=== PATIENT | female | born 1940 | race Caucasian/White ===

== ENCOUNTER → 2016-08-09 | Outpatient (CLI) | payer MEDICARE, BC ==
[~2016-08-09] MED LIST: ADVIL200 M3 PO; ATORVASTATIN CA10 MG PO; EQL FISH OIL 11 EAC1 PO; FISH OIL 1,2001 EAC2 PO; NEURONTIN300 MG PO; OS-CAL 500+D31 EACH PO; PENTOXIFYLINE100 GM PO; VITAMIN B-122000 MCG PO; VITAMIN C500 MG PO; VITAMIN D1000 UNIT PO; ZINC50 M1 PO
--- NOTE | ~2016-08-09 | MY11 ---
[facility] A Service of [facility] & [facility] RADIOLOGY TEXT RESULTS PATIENT: NIYA VELASCO LOCATION: [facility] : 44 UNIT #: [id number] AGE: [address]: Giovanny Simons MD SEX: F ORDER DR: [id number] [place], [place] [address] [id number] O MR#: [id number] Acc #: [id number] NAME: NIYA VELASCO : 1940 SEX: F STUDY DATE/TIME: 08/09/2016 12:08 UNIT: [facility] ROOM: STUDY DESCRIPTION: MY Mammogram Screening Dig Moris Attending Physician: Giovanny Simons M.D. Referring Physician: Giovanny Simons M.D. Ordering Physician: Giovanny Simons M.D. Primary Care Physician: Giovanny Simons M.D. MEDICAL IMAGING REPORT This report is preliminary unless electronic signature is present EXAM Digital screening mammogram with CAD 08/09/2016 INDICATIONS Routine screening. PROCEDURE Bilateral CC and MLO views obtained on a digital mammography unit. FDA-approved CAD device utilized. COMPARISON 07/07/2015 and 10/16/2011 FINDINGS Scattered fibroglandular density. No dominant mass or suspicious calcification. 6-7 mm mass in the subareolar left breast is stable dating back to at least 2011. IMPRESSION Benign screening mammogram, screen interval in 1 year suggested. BIRADS II Patients over the age of 40 are entered into a reminder system with target due date for the next mammogram. A result letter will also be sent to the patient. BIRADS: 2 - Benign finding Dictated by... Antione Henriquez M.D. THIS IS AN ELECTRONICALLY VERIFIED REPORT Antione Henriquez M.D. at 08/10/2016 2:11 PM BRIAN/stephanie [facility] A Service of [facility] & [facility] RADIOLOGY TEXT RESULTS PATIENT: NIYA VELASCO LOCATION: [facility] : 44 UNIT #: [id number] AGE: [address]: Giovanny Simons MD SEX: F ORDER DR: TD: 08/09/2016 17:34 JOB #: [id number] MEDICAL IMAGING REPORT COPY
== END | disposition home or self-care (01) ==
LOC: CWCC 11:46
DX: Z12.31 Encounter for screening mammogram for malignant neoplasm of breast (principal)
CPT/HCPCS: G0202

== ENCOUNTER 2017-01-06 12:13 | Emergency (ER) | payer MEDICARE, BC ==
[~2017-01-06] VITALS: Ht 160 cm; Wt 46.7 kg
--- NOTE | ~2017-01-06 | CT4 ---
[facility] A Service [facility] RADIOLOGY TEXT RESULTS PATIENT: NIYA VELASCO LOCATION: SED : 44 UNIT #: [id number] AGE: [address]: Becky Daugherty MD SEX: F ORDER DR: [id number] E MR#: [id number] Acc #: [id number] NAME: NIYA VELASCO : 1940 SEX: F STUDY DATE/TIME: 01/06/2017 13:03 UNIT: SED ROOM: STUDY DESCRIPTION: CT Abd and Pelv Wo Cont Attending Physician: Becky Daugherty M.D. Ordering Physician: Becky Daugherty M.D. Primary Care Physician: Giovanny Simons M.D. MEDICAL IMAGING REPORT This report is preliminary unless electronic signature is present. EXAM CT abdomen and pelvis without contrast HISTORY Generalized abdomen pain, nausea and vomiting for [address] abdomen and pelvis was performed without contrast. This CT exam was performed with one or more of the following radiation dose reduction techniques: automatic exposure control, adjustment of mA and/or kV according to patient size, and iterative reconstruction. CT ABDOMEN: The liver, spleen, pancreas, kidneys, and adrenal glands are normal. Cholecystectomy. No urinary calculi or obstruction. No bowel dilatation. No ascites. No inflammatory stranding. Normal caliber abdominal aorta. CT PELVIS: Hysterectomy. No free fluid. No inflammatory changes. No bowel obstruction. The urinary bladder is normal. IMPRESSION 1. No acute findings in the abdomen or pelvis. 2. Cholecystectomy and hysterectomy. Dictated by... Edvin Collins M.D. THIS IS AN ELECTRONICALLY VERIFIED REPORT [facility] A Service of [facility] RADIOLOGY TEXT RESULTS PATIENT: NIYA VELASCO LOCATION: SED : 44 UNIT #: [id number] AGE: [address]: Becky Daugherty MD SEX: F ORDER DR: Edvin Collins M.D. at 01/07/2017 11:14 PM RICH/mariano TD: 01/07/2017 05:02 JOB #: [id number] MEDICAL IMAGING REPORT Page 1 of 1
--- NOTE | ~2017-01-06 | CT57 ---
[facility]. [facility] A Service of [facility] RADIOLOGY TEXT RESULTS PATIENT: NIYA VELASCO LOCATION: SED : 44 UNIT #: [id number] AGE: [address]: Becky Daugherty MD SEX: F ORDER DR: [id number] [address] [address] [id number] E MR#: [id number] Acc #: [id number] NAME: NIYA VELASCO : 1940 SEX: F STUDY DATE/TIME: 01/06/2017 13:10 UNIT: SED ROOM: STUDY DESCRIPTION: CT Chest Wo Cont Attending Physician: Becky Daugherty M.D. Ordering Physician: Becky Daugherty M.D. Primary Care Physician: Giovanny Simons M.D. MEDICAL IMAGING REPORT This report is preliminary unless electronic signature is present. EXAM CT chest without contrast HISTORY Shortness of air and fever for 2 days. Prior sinus carcinoma, and radiation therapy. FINDINGS CT chest was performed without contrast. This CT exam was performed with one or more of the following radiation dose reduction techniques: automatic exposure control, adjustment of mA and/or kV according to patient size, and iterative reconstruction. Spinal fusion from T2 to T6, with laminectomy at T4, and stable defect in the posterior midline of the T4 vertebral body. Bilateral superior paramediastinal atelectasis, characteristic of postradiation changes. There are extensive bilateral pulmonary nodules, throughout the lungs bilaterally, the largest of which are primarily in the mid and inferior lower lobes, measuring up to 2.6 cm in the lateral right lower lobe and 2.5 cm in the posterolateral left lower lobe. These have increased in size and number as compared to the prior CT. Several of these nodules contain fairly subtle, amorphous central calcifications. There is also moderate mediastinal and bilateral hilar adenopathy, the margins of which are difficult to measure, in the absence of IV contrast, but these appear larger than on the prior CT. No airspace infiltrates. No pleural effusions. Findings are characteristic of progressive metastatic disease as compared to CT 01/01/2014. IMPRESSION 1. Extensive bilateral pulmonary nodules and masses have increased in size and number and measure up to 2.6 cm in the right lower lobe and STS. [facility] A Service of [facility] RADIOLOGY TEXT RESULTS PATIENT: NIYA VELASCO LOCATION: SED : 44 UNIT #: [id number] AGE: [address]: Becky Daugherty MD SEX: F ORDER DR: 2.5 cm in the left lower lobe. Moderate mediastinal and bilateral hilar adenopathy appears slightly greater than on prior study as well and these are concerning for pulmonary and papi metastases. 2. Stable partial destruction of the posterior T4 vertebral body as compared to the prior CT. Interval upper thoracic spinal fusion with hardware extending from T2 to T6. 3. No airspace infiltrates or effusions. Dictated by... Edvin Collins M.D. THIS IS AN ELECTRONICALLY VERIFIED REPORT Edvin Collins M.D. at 01/07/2017 11:14 PM RICH/mariano TD: 01/07/2017 04:45 JOB #: [id number] MEDICAL IMAGING REPORT Page 1 of 1
[2017-01-06 12:51] LABS: BASOPHIL# 0.1 X10e3 (0-0.3); BASOPHIL% 1.6 % (0-2.5); EOSINOPHIL# 0.1 X10e3 (0-0.7); EOSINOPHIL% 1.3 % (0.0-7.0); HEMATOCRIT 44.4 % (35.0-45.0); HEMOGLOBIN 15.1 gm/dL (12.0-16.0); LYMPHOCYTE# 0.5 X10e3 (1.0-3.5); LYMPHOCYTE% 11.4 % (17.0-45.0); MEAN CELL VOLUME 95.4 FL (83-96); MEAN CORPUSCULAR HEMOGLOBIN 32.6 PG (28-34); MEAN CORPUSCULAR HGB CONC 34.1 g/dL (30-36); MEAN PLATELET VOLUME 6.8 FL (6.5-11.5); MONOCYTE# 0.4 X10e3 (0-1.0); MONOCYTE% 8.5 % (3.0-12.0); NEUTROPHIL# 3.5 X10e3 (1.5-7.1); NEUTROPHIL% 77.2 % (40-75); PLATELET COUNT 266 X10e3 (140-420); RED BLOOD COUNT 4.65 X10e (3.90-5.30); RED CELL DISTRIBUTION WIDTH 12.8 % (11.0-15.5); WHITE BLOOD COUNT 4.6 X10e3 (4.0-10.5)
[2017-01-06 12:52] LABS: DIFF IND NO
[2017-01-06 13:17] LABS: ALBUMIN SERUM 4.4 g/dL (3.5-5.0); BILIRUBIN, DIRECT 0.2 mg/dL (0.0-0.2); BILIRUBIN,INDIRECT 0.7 mg/dL (0.0-0.9); BILIRUBIN,TOTAL 0.9 mg/dL (0.2-2.0); BUN/CREATININE RATIO 18.88; CREATININE SERUM 0.9 mg/dL (0.6-1.4); GLOM FILT RATE Estimated 62.6 mL/min (>60); POTASSIUM 3.8 mmol/L (3.5-5.1); PROTEIN TOTAL SERUM 7.3 g/dL (6.0-8.3)
[2017-01-06 13:47] LABS: URINE SOURCE CLEAN CATCH
[2017-01-06 13:51] LABS: URINE APPEARANCE CLEAR; URINE BILIRUBIN NEG (NEG); URINE BLOOD 1+ (NEG); URINE COLOR YELLOW; URINE GLUCOSE NEG (NORM); URINE KETONE NEG (NEG); URINE LEUKOCYTE ESTERASE 2+ (NEG); URINE NITRATE POS (NEG); URINE PROTEIN TRACE (NEG); URINE UROBILINOGEN 0.2 MG/DL (NORM)
[2017-01-06 13:53] LABS: MICRO INDICATED? YES
[2017-01-06 13:59] LABS: CULTURE INDICATED? YES; URINE BACTERIA 2+ (NEG); URINE SQUAMOUS EPITHELIAL CELL OCCAS /[HPF]; URINE WBC 25-50 /[HPF] (0-5)
== END 2017-01-06 15:01 | disposition home or self-care (01) ==
LOC: SED 12:13
PROVIDERS: Student in an Organized Health Care Education/Training Program
DX: N39.0 Urinary tract infection, site not specified (principal); R19.7 Diarrhea, unspecified; E78.5 Hyperlipidemia, unspecified; F17.200 Nicotine dependence, unspecified, uncomplicated; Z90.49 Acquired absence of other specified parts of digestive tract; Z90.710 Acquired absence of both cervix and uterus; Z88.5 Allergy status to narcotic agent; Z79.899 Other long term (current) drug therapy
CPT/HCPCS: 36415; 71250; 74176; 80048; 80076; 81003; 82150; 83690; 85025; 87086; 96361; 96365; 96375; 99284; J0696; J2405